=== PATIENT | female | born 1955 | race Caucasian/White ===

== ENCOUNTER 2018-01-01 12:02 | Emergency (ER) | payer OTHER ==
[2018-01-01 12:31] LABS: URINE BLOOD (Dip) POC Trace-lysed (NEGATIVE); URINE GLUCOSE (Dip) POC Negative (NEGATIVE); URINE KETONES (Dip) POC Negative (NEGATIVE); URINE LEUKOCYTE EST (Dip) POC 2+ (NEGATIVE); URINE NITRITE (Dip) POC Negative (NEGATIVE); URINE TOTAL PROTEIN POC Negative (NEGATIVE)
[2018-01-01 12:31] LABS: URINE PH (Dip) POC 6.5 (5.0-8.5)
== END 2018-01-01 12:56 | disposition home or self-care (01) ==
LOC: FTE 12:02
DX: N39.0 Urinary tract infection, site not specified (principal)
CPT/HCPCS: 81003; 99283